=== PATIENT | male | born 1990 | race Caucasian/White ===

== ENCOUNTER 2025-02-25 08:10 | Inpatient (IN) | payer OTHER ==
[~2025-02-25] VITALS: Ht 170.2 cm; Wt 75.0 kg
[2025-02-25 09:20] LABS: PLATELET COUNT (AUTO) 269 K/uL (150-450); RED BLOOD CELL COUNT(AUTO) 3.90 MIL/uL (4.50-5.90); RED CELL DISTRIBUTION WIDTH 13.3 % (11.5-14.5); WHITE BLOOD COUNT (AUTO) 12.5 K/uL (4.5-11.0)
[2025-02-25 09:28] LABS: CALCIUM, TOTAL 8.1 mg/dL (8.8-10.5); CREATININE 0.57 mg/dL (0.60-1.30); GLOMERULAR FILTR. RATE CALC > 60 mL/min (>60); GLUCOSE,RANDOM 102 mg/dL (70-110); SODIUM SERUM 138 mmol/L (136-145); UREA NITROGEN, BLOOD 14 mg/dL (7-18)
[2025-02-25 11:58] LABS: APPEARANCE,URINE CLEAR (CLEAR); GLUCOSE, URINE (UA) NEGATIVE (NEGATIVE); LEUKOCYTE ESTERASE ,URINE NEGATIVE (NEGATIVE); NITRATE,URINE NEGATIVE (NEGATIVE); OCCULT BLOOD,URINE NEGATIVE (NEGATIVE); PH,URINE DRUG SCREEN 6.5 (5.0-8.0); SPECIFIC GRAVITIY, URINE 1.022 (1.003-1.030)
[2025-02-25] MEDS: SODIUM CHLORIDE 0.9% 1,000 ML IV ONE (12:02)
[2025-02-25] MEDS: KETOROLAC TROMETHAMINE 30 MG/ML VIAL IVP ONE (12:02)
[2025-02-25 12:04] LABS: ALCOHOL, URINE DRUG SCREEN NEGATIVE (NEGATIVE); AMPHET/METH SCREEN,URINE NEGATIVE (NEGATIVE); BARBITURATE SCREEN, URINE NEGATIVE (NEGATIVE); CANNABINOID SCREEN,URINE NEGATIVE (NEGATIVE); COCAINE SCREEN,URINE NEGATIVE (NEGATIVE); METHADONE SCREEN, URINE NEGATIVE (NEGATIVE)
[2025-02-25] MEDS ORDERED: 0.9% SODIUM CHLORIDE 10 ML SYRINGE IVP PRN (13:00)
[2025-02-25] MEDS ORDERED: IOHEXOL 350 MG/ML 100 ML VIAL ONE (13:35)
[2025-02-25] MEDS ORDERED: SODIUM CHLORIDE 0.9% 100 ML ONE (13:35)
[2025-02-25] MEDS ORDERED: 0.9% SODIUM CHLORIDE 10 ML SYRINGE IVP ONE (13:35)
[2025-02-25 13:37] LABS: CALCIUM, TOTAL 7.9 mg/dL (8.8-10.5); CREATININE 0.50 mg/dL (0.60-1.30); GLOMERULAR FILTR. RATE CALC > 60 mL/min (>60); GLUCOSE,RANDOM 92 mg/dL (70-110); SODIUM SERUM 138 mmol/L (136-145); UREA NITROGEN, BLOOD 13 mg/dL (7-18)
[2025-02-25] MEDS: MORPHINE SULFATE 2 MG/ML SYRINGE IVP ONE (13:41)
[2025-02-25] MEDS: CefTRIAXone SODIUM 2 GM in DEXTROSE 5%-WATER 50 ML IV SCH (13:43)
[2025-02-25] MEDS: SODIUM CHLORIDE 0.9% 1,250 ML IV ONE (13:43)
[2025-02-25 13:57] LABS: ASPARTATE AMINOTRANSFERASE 24 U/L (15-37); LACTATE DEHYDROGENASE 199 U/L (85-227); TOTAL PROTEIN, SERUM 6.1 g/dL (6.4-8.2)
[2025-02-25 14:07] LABS: LACTIC ACID 0.4 mmol/L (0.4-2.0)
[2025-02-25 14:17] LABS: HCG,QUANTITATIVE < 1 mIU/mL (0-6)
[2025-02-25] MEDS: ACETAMINOPHEN 325 MG TABLET PO PRN (14:50)
[2025-02-25 14:56] VITALS: BP 143/95; PULSE 70; RESP 20; TEMP 98.2; O2SAT 100
[2025-02-25] MEDS: HEPARIN SODIUM,PORCINE 5,000 UNITS/ML VIAL SQ SCH (16:06)
[2025-02-25 20:04] VITALS: BP 121/69; PULSE 79; RESP 18; TEMP 98.4; O2SAT 100
[2025-02-25] MEDS: PIPERACILLIN/TAZO 3.375 GM/D5W 50 ML IV SCH (20:07)
[2025-02-26 04:59] VITALS: BP 132/76; PULSE 70; RESP 18; TEMP 99.7; O2SAT 99
[2025-02-26 06:36] VITALS: TEMP 98.4
[2025-02-26 09:04] LABS: PLATELET COUNT (AUTO) 278 K/uL (150-450); RED BLOOD CELL COUNT(AUTO) 3.88 MIL/uL (4.50-5.90); RED CELL DISTRIBUTION WIDTH 13.2 % (11.5-14.5); WHITE BLOOD COUNT (AUTO) 12.3 K/uL (4.5-11.0)
[2025-02-26 09:06] VITALS: BP 135/76; PULSE 63; RESP 18; TEMP 98.6; O2SAT 100
[2025-02-26 09:14] LABS: CREATININE 0.93 mg/dL (0.60-1.30); GLUCOSE,RANDOM 91 mg/dL (70-110); SODIUM SERUM 139 mmol/L (136-145); UREA NITROGEN, BLOOD 11 mg/dL (7-18)
[2025-02-26 09:15] LABS: CALCIUM, TOTAL 8.1 mg/dL (8.8-10.5); GLOMERULAR FILTR. RATE CALC > 60 mL/min (>60)
[2025-02-26] MEDS ORDERED: GADOTERATE MEGLUMINE 10 MMOL/20 ML VIAL IVP ONE (10:05)
[2025-02-26] MEDS: KETOROLAC TROMETHAMINE 15 MG/ML VIAL IVP PRN (15:30)
[2025-02-26 21:25] VITALS: BP 131/77; PULSE 61; RESP 18; TEMP 99; O2SAT 99
[2025-02-26] MEDS ORDERED: SODIUM PHOSPHATE,MONO-DIBASIC 133 ML ENEMA PR ONE (22:45)
[2025-02-26] MEDS: POLYETHYLENE GLYCOL 3350 17 GM PACKET PO ONE (23:30)
[2025-02-27 03:35] VITALS: BP 117/65; PULSE 87; RESP 18; TEMP 98.4; O2SAT 98
[2025-02-27 08:00] VITALS: BP 128/58; PULSE 60; RESP 19; TEMP 98; O2SAT 99
[2025-02-27 08:33] LABS: PLATELET COUNT (AUTO) 284 K/uL (150-450); RED BLOOD CELL COUNT(AUTO) 3.94 MIL/uL (4.50-5.90); RED CELL DISTRIBUTION WIDTH 13.0 % (11.5-14.5); WHITE BLOOD COUNT (AUTO) 11.6 K/uL (4.5-11.0)
[2025-02-27 08:46] LABS: CALCIUM, TOTAL 8.1 mg/dL (8.8-10.5); CREATININE 0.57 mg/dL (0.60-1.30); GLOMERULAR FILTR. RATE CALC > 60 mL/min (>60); GLUCOSE,RANDOM 95 mg/dL (70-110); SODIUM SERUM 138 mmol/L (136-145); UREA NITROGEN, BLOOD 11 mg/dL (7-18)
[2025-02-27 08:50] LABS: ASPARTATE AMINOTRANSFERASE 22 U/L (15-37); LACTATE DEHYDROGENASE 172 U/L (85-227); TOTAL PROTEIN, SERUM 6.2 g/dL (6.4-8.2)
[2025-02-27] MEDS ORDERED: MIDAZOLAM HCL 2 MG/2 ML VIAL ONE (12:00)
[2025-02-27] MEDS ORDERED: FentaNYL CITRATE PF 100 MCG/2 ML VIAL ONE (12:00)
[2025-02-27] MEDS ORDERED: SODIUM CHLORIDE 0.9% 500 ML IV ONE (12:45)
[2025-02-27] MEDS: GABAPENTIN 100 MG CAPSULE PO SCH (15:00)
[2025-02-27] MEDS: ACETAMINOPHEN 325 MG TABLET PO SCH (16:00)
[2025-02-27] MEDS ORDERED: RINGERS SOLUTION,LACTATED 1,000 ML IV ONE (17:25)
[2025-02-27] MEDS: VANCOMYCIN HCL 1 GM VIAL ONE (18:00)
[2025-02-27] MEDS ORDERED: ACETAMINOPHEN 1000 MG/ISO-OSM 100 ML IV ONE (18:56)
[2025-02-27] MEDS: ACETAMINOPHEN 1000 MG/ISO-OSM 100 ML IV ONE (19:12)
[2025-02-27] MEDS ORDERED: OxyCODONE HCL/ACETAMINOPHEN 5-325 MG TABLET PO PRN (19:15)
[2025-02-27] MEDS ORDERED: HYDROCODONE/ACETAMINOPHEN 5-325 MG TABLET PO PRN (19:15)
[2025-02-27 20:00] VITALS: BP 115/70; PULSE 67; RESP 18; TEMP 98.8; O2SAT 98
[2025-02-27] MEDS: POTASSIUM CHL 20 MEQ/0.9% NS 1,000 ML IV SCH (20:14)
[2025-02-27] MEDS ORDERED: FentaNYL CITRATE PF 100 MCG/2 ML VIAL IV ONE (20:59)
[2025-02-27] MEDS ORDERED: MIDAZOLAM HCL 2 MG/2 ML VIAL IVP ONE (20:59)
[2025-02-27] MEDS: MORPHINE SULFATE 4 MG/ML SYRINGE IVP PRN (22:29)
[2025-02-27 22:38] VITALS: BP 75/70; PULSE 56; RESP 18; TEMP 97.5
[2025-02-27 22:40] VITALS: BP 86/46; PULSE 54; RESP 18; TEMP 97.5; O2SAT 95
[2025-02-27] MEDS ORDERED: SODIUM CHLORIDE 0.9% 1,000 ML ONE (22:46)
[2025-02-27] MEDS: SODIUM CHLORIDE 0.9% 1,000 ML IV ONE (23:00)
[2025-02-28] VITALS: BP 123/70; PULSE 52; PULSE 53; RESP 15; TEMP 98.2; O2SAT 94
[2025-02-28] MEDS: TRANEXAMIC ACID 1,000 MG/10 ML VIAL IVP ONE (00:39)
[2025-02-28] MEDS: TRANEXAMIC ACID 1,000 MG/10 ML VIAL TP ONE (00:39)
[2025-02-28] MEDS: ETHYL ALCOHOL 62% ANTISEPTIC NASAL SANITIZER 0.6 ML AMPUL NASAL SCH (00:41)
[2025-02-28 04:00] VITALS: BP 99/55; PULSE 55; RESP 17; TEMP 98.3; O2SAT 97
[2025-02-28 06:16] LABS: PLATELET COUNT (AUTO) 290 K/uL (150-450); RED BLOOD CELL COUNT(AUTO) 3.69 MIL/uL (4.50-5.90); RED CELL DISTRIBUTION WIDTH 12.7 % (11.5-14.5); WHITE BLOOD COUNT (AUTO) 16.4 K/uL (4.5-11.0)
[2025-02-28 06:24] LABS: CALCIUM, TOTAL 7.5 mg/dL (8.8-10.5); CREATININE 0.72 mg/dL (0.60-1.30); GLOMERULAR FILTR. RATE CALC > 60 mL/min (>60); GLUCOSE,RANDOM 176 mg/dL (70-110); SODIUM SERUM 137 mmol/L (136-145); UREA NITROGEN, BLOOD 16 mg/dL (7-18)
[2025-02-28 08:00] VITALS: BP 124/63; PULSE 47; RESP 18; TEMP 98.1; O2SAT 98
[2025-02-28 08:30] VITALS: PULSE 69
[2025-02-28] MEDS ORDERED: ONDANSETRON HCL 4 MG/2 ML VIAL IVP ONE (12:07)
[2025-02-28] MEDS ORDERED: ROCURONIUM BROMIDE 10 MG/ML 5 ML VIAL IV ONE (12:07)
[2025-02-28] MEDS ORDERED: DEXAMETHASONE SOD PHOS 4 MG/ML VIAL IVP ONE (12:07)
[2025-02-28] MEDS ORDERED: SUGAMMADEX SODIUM 200 MG/2 ML VIAL IVP ONE (12:07)
[2025-02-28] MEDS ORDERED: LIDOCAINE/PF 2% 5 ML VIAL IM ONE (12:07)
[2025-02-28] MEDS ORDERED: PROPOFOL 1% 20 ML VIAL IVP ONE (12:07)
[2025-02-28] MEDS ORDERED: KETOROLAC TROMETHAMINE 60 MG/2 ML VIAL IM ONE (12:07)
[2025-02-28] MEDS: SODIUM CHLORIDE 0.9% 1,000 ML IV ONE (14:27)
[2025-02-28] MEDS: HYDROCODONE/ACETAMINOPHEN 5-325 MG TABLET PO PRN (14:28)
[2025-02-28] MEDS: VANCOMYCIN 1.25 GM/WATER(PEG) 250 ML IV ONE (17:46)
[2025-02-28 18:00] VITALS: BP 118/70; PULSE 64; RESP 18; TEMP 98.2; O2SAT 98
[2025-02-28] MEDS ORDERED: BENZOCAINE/MENTHOL [CEPACOL] LOZENGE PO PRN (18:45)
[2025-02-28 20:00] VITALS: BP 119/69; PULSE 61; RESP 18; TEMP 97.7; O2SAT 100
[2025-02-28] MEDS: VANCOMYCIN 1GM/WATER(PEG/NADA) 200 ML IV SCH (23:38)
[2025-03-01 04:00] VITALS: BP 119/68; PULSE 60; RESP 16; TEMP 98.6; O2SAT 98
[2025-03-01] MEDS ORDERED: SODIUM CHLORIDE 0.9% 500 ML IRRIG SOLUTION BOTTLE IRRIG ONE ×2 (04:39→14:20)
[2025-03-01 06:45] LABS: PLATELET COUNT (AUTO) 287 K/uL (150-450); RED BLOOD CELL COUNT(AUTO) 3.39 MIL/uL (4.50-5.90); RED CELL DISTRIBUTION WIDTH 13.1 % (11.5-14.5); WHITE BLOOD COUNT (AUTO) 13.5 K/uL (4.5-11.0)
[2025-03-01 06:49] LABS: CALCIUM, TOTAL 7.6 mg/dL (8.8-10.5); CREATININE 0.74 mg/dL (0.60-1.30); GLOMERULAR FILTR. RATE CALC > 60 mL/min (>60); GLUCOSE,RANDOM 96 mg/dL (70-110); SODIUM SERUM 139 mmol/L (136-145); UREA NITROGEN, BLOOD 14 mg/dL (7-18)
[2025-03-01 08:37] VITALS: BP 117/70; PULSE 62; RESP 18; TEMP 98.3; O2SAT 95
[2025-03-01 19:20] LABS: INFLUENZA A-RTPCR,COMBO NEGATIVE (NEGATIVE); INFLUENZA B-RTPCR,COMBO NEGATIVE (NEGATIVE); RESPIRATORY SYNCYTIAL VRS-PCR NEGATIVE (NEGATIVE); SARS COVID19 RTPCR, COMBO NEGATIVE (NEGATIVE)
[2025-03-01 19:38] VITALS: BP 136/72; PULSE 64; RESP 18; TEMP 98.4; O2SAT 96
[2025-03-01 20:07] LABS: BETA-2 GLYCOPROTEIN1 IGA <9 (0-25); BETA-2 GLYCOPROTEIN1 IGG <9 (0-20); BETA-2 GLYCOPROTEIN1 IGM <9 (0-32)
[2025-03-02 04:24] VITALS: BP 134/79; PULSE 58; RESP 19; TEMP 98.2; O2SAT 100
[2025-03-02 07:26] LABS: PLATELET COUNT (AUTO) 303 K/uL (150-450); RED BLOOD CELL COUNT(AUTO) 3.64 MIL/uL (4.50-5.90); RED CELL DISTRIBUTION WIDTH 13.5 % (11.5-14.5); WHITE BLOOD COUNT (AUTO) 8.5 K/uL (4.5-11.0)
[2025-03-02 07:39] LABS: CALCIUM, TOTAL 8.0 mg/dL (8.8-10.5); CREATININE 0.73 mg/dL (0.60-1.30); GLOMERULAR FILTR. RATE CALC > 60 mL/min (>60); GLUCOSE,RANDOM 95 mg/dL (70-110); SODIUM SERUM 140 mmol/L (136-145); UREA NITROGEN, BLOOD 13 mg/dL (7-18)
[2025-03-02 08:00] VITALS: BP 143/89; PULSE 54; RESP 19; TEMP 97.9; O2SAT 99
[2025-03-02] MEDS: ONDANSETRON HCL 4 MG/2 ML VIAL IVP PRN (14:56)
[2025-03-02] MEDS: OxyCODONE HCL/ACETAMINOPHEN 5-325 MG TABLET PO PRN (15:07)
[2025-03-02 20:05] VITALS: BP 129/70; PULSE 57; RESP 18; TEMP 98.1; O2SAT 99
[2025-03-03 05:49] VITALS: BP 121/64; PULSE 56; RESP 19; TEMP 98.2; O2SAT 99
[2025-03-03 06:37] LABS: PLATELET COUNT (AUTO) 320 K/uL (150-450); RED BLOOD CELL COUNT(AUTO) 3.59 MIL/uL (4.50-5.90); RED CELL DISTRIBUTION WIDTH 13.6 % (11.5-14.5); WHITE BLOOD COUNT (AUTO) 8.0 K/uL (4.5-11.0)
[2025-03-03 06:47] LABS: CALCIUM, TOTAL 8.1 mg/dL (8.8-10.5); CREATININE 1.05 mg/dL (0.60-1.30); GLOMERULAR FILTR. RATE CALC > 60 mL/min (>60); GLUCOSE,RANDOM 128 mg/dL (70-110); SODIUM SERUM 138 mmol/L (136-145); UREA NITROGEN, BLOOD 15 mg/dL (7-18)
[2025-03-03 08:47] VITALS: BP 108/67; PULSE 53; RESP 18; TEMP 98.1; O2SAT 98
[2025-03-03] MEDS ORDERED: GABA-1216 PO (11:53)
[2025-03-03] MEDS ORDERED: CEPH-558 PO (11:54)
[2025-03-03] MEDS ORDERED: DOXY-354 PO (11:56)
[2025-03-03] MEDS ORDERED: TRAM50TA5 PO (11:57)
[2025-03-03 14:06] LABS: BETA-HYDROXBUTYRIC ACID 2.1 mg/dL
[2025-03-03 20:28] VITALS: BP 141/89; PULSE 77; RESP 20; TEMP 97.9; O2SAT 98
[2025-03-05 05:08] LABS: BETA-CAROTENE SERUM TOTAL 11.0 ug/dL (3-91)
== END 2025-03-03 21:00 | DRG 854 ==
LOC: EMS 08:10 → EDH 12:52 → 6N 14:10 → ICU 02-28 → 6N 02-28 11:44
PROVIDERS: ADMIT Internal Medicine; ATTEND Internal Medicine
PROC: 0V950ZZ Drainage of Scrotum, Open Approach (ICD-10-PCS; principal; 2025-02-27 17:30)
DX: A41.9 Sepsis, unspecified organism (principal); N45.4 Abscess of epididymis or testis; D64.9 Anemia, unspecified; N50.812 Left testicular pain; K56.41 Fecal impaction; F17.200 Nicotine dependence, unspecified, uncomplicated; Z20.822 Contact with and (suspected) exposure to COVID-19; F15.90 Other stimulant use, unspecified, uncomplicated
CPT/HCPCS: 71260; 72193; 72197; 74160; 76870; 80048; 80053; 80202; 80307; 81003; 82010; 82105; 82380; 83605; 83615; 83735; 84145; 84702; 85014; 85018; 85025; 85730; 86146; 86850; 86900; 86901; 87040; 87070; 87081; 87205; 87430; 87491; 87591; 87637; 88305; 96361; 96374; 99285; J0131; J0696; J1100; J1171; J1644; J1885; J2250; J2270; J2405; J2543; J2704; J3010; J3373; J3480; J3490; J7030; J7040; J7050; J7060; J7120; 36415-L1; 36415-TC; Z7610

== ENCOUNTER 2025-03-03 23:39 | Inpatient (IN) | payer OTHER ==
[~2025-03-03] VITALS: Ht 172.7 cm; Wt 91.0 kg
[~2025-03-03 23:39] MED LIST: CEPH-558 PO; DOXY-354 PO; GABA-1216 PO; TRAM50TA5 PO
[2025-03-04 01:31] LABS: PLATELET COUNT (AUTO) 348 K/uL (150-450); RED BLOOD CELL COUNT(AUTO) 3.43 MIL/uL (4.50-5.90); RED CELL DISTRIBUTION WIDTH 13.3 % (11.5-14.5); WHITE BLOOD COUNT (AUTO) 10.2 K/uL (4.5-11.0)
[2025-03-04 01:35] LABS: CALCIUM, TOTAL 8.3 mg/dL (8.8-10.5); CREATININE 1.06 mg/dL (0.60-1.30); GLOMERULAR FILTR. RATE CALC > 60 mL/min (>60); GLUCOSE,RANDOM 137 mg/dL (70-110); SODIUM SERUM 137 mmol/L (136-145); UREA NITROGEN, BLOOD 20 mg/dL (7-18)
[2025-03-04 01:41] LABS: ASPARTATE AMINOTRANSFERASE 33.0 U/L (15-37); TOTAL PROTEIN, SERUM 6.0 g/dL (6.4-8.2)
[2025-03-04] MEDS: FentaNYL CITRATE PF 100 MCG/2 ML VIAL IVP ONE (03:22)
[2025-03-04] MEDS: DOXYCYCLINE HYCLATE 100 MG in DEXTROSE 5%-WATER 100 ML IV ONE (03:30)
[2025-03-04 04:37] LABS: APPEARANCE,URINE CLEAR (CLEAR); GLUCOSE, URINE (UA) NEGATIVE (NEGATIVE); LEUKOCYTE ESTERASE ,URINE NEGATIVE (NEGATIVE); NITRATE,URINE NEGATIVE (NEGATIVE); OCCULT BLOOD,URINE NEGATIVE (NEGATIVE); SPECIFIC GRAVITIY, URINE 1.016 (1.003-1.030)
[2025-03-04 08:29] VITALS: BP 136/77; PULSE 57; RESP 18; TEMP 97.5; O2SAT 100
[2025-03-04] MEDS ORDERED: BISACODYL 10 MG RECTAL RECTAL SUPPOSITORY PR PRN (08:45)
[2025-03-04] MEDS ORDERED: ZOLPIDEM TARTRATE 5 MG TABLET PO PRN (08:45)
[2025-03-04] MEDS ORDERED: ONDANSETRON HCL 4 MG/2 ML VIAL IVP PRN (08:45)
[2025-03-04] MEDS: CEPHALEXIN MONOHYDRATE 500 MG CAPSULE PO SCH (10:38)
[2025-03-04] MEDS: DOXYCYCLINE HYCLATE 100 MG TABLET PO SCH (10:38)
[2025-03-04] MEDS: PANTOPRAZOLE SODIUM 40 MG DR TABLET PO SCH (10:38)
[2025-03-04] MEDS: DOCUSATE SODIUM 100 MG CAPSULE PO SCH (10:39)
[2025-03-04] MEDS: HEPARIN SODIUM,PORCINE 5,000 UNITS/ML VIAL SQ SCH (15:51)
[2025-03-04 19:55] VITALS: BP 130/71; PULSE 68; RESP 18; TEMP 98.4; O2SAT 98
[2025-03-04] MEDS: ACETAMINOPHEN 325 MG TABLET PO PRN (20:17)
[2025-03-05 04:22] VITALS: BP 134/81; PULSE 57; RESP 18; TEMP 98.1; O2SAT 99
[2025-03-05 06:54] LABS: PLATELET COUNT (AUTO) 337 K/uL (150-450); RED BLOOD CELL COUNT(AUTO) 3.88 MIL/uL (4.50-5.90); RED CELL DISTRIBUTION WIDTH 13.8 % (11.5-14.5); WHITE BLOOD COUNT (AUTO) 10.7 K/uL (4.5-11.0)
[2025-03-05 07:11] LABS: CALCIUM, TOTAL 8.7 mg/dL (8.8-10.5); CREATININE 0.61 mg/dL (0.60-1.30); GLOMERULAR FILTR. RATE CALC > 60 mL/min (>60); GLUCOSE,RANDOM 89 mg/dL (70-110); SODIUM SERUM 139 mmol/L (136-145); UREA NITROGEN, BLOOD 14 mg/dL (7-18)
[2025-03-05 08:55] VITALS: BP 130/75; PULSE 84; RESP 18; TEMP 97.7; O2SAT 99
[2025-03-05] MEDS: MORPHINE SULFATE 4 MG/ML SYRINGE IVP PRN (09:44)
[2025-03-05] MEDS: MAGNESIUM HYDROXIDE SUSPENSION 30 ML UDCUP PO PRN (17:16)
[2025-03-05 20:00] VITALS: BP 117/59; PULSE 74; RESP 18; TEMP 98.4; O2SAT 99
[2025-03-06 03:54] VITALS: BP 111/65; PULSE 65; RESP 18; TEMP 98.1; O2SAT 99
[2025-03-06 06:17] LABS: PLATELET COUNT (AUTO) 364 K/uL (150-450); RED BLOOD CELL COUNT(AUTO) 3.66 MIL/uL (4.50-5.90); RED CELL DISTRIBUTION WIDTH 13.6 % (11.5-14.5); WHITE BLOOD COUNT (AUTO) 9.4 K/uL (4.5-11.0)
[2025-03-06 06:32] LABS: CALCIUM, TOTAL 8.3 mg/dL (8.8-10.5); CREATININE 0.73 mg/dL (0.60-1.30); GLOMERULAR FILTR. RATE CALC > 60 mL/min (>60); GLUCOSE,RANDOM 112 mg/dL (70-110); SODIUM SERUM 140 mmol/L (136-145); UREA NITROGEN, BLOOD 16 mg/dL (7-18)
[2025-03-06 08:36] VITALS: BP 121/75; PULSE 51; RESP 18; TEMP 98.2; O2SAT 100
[2025-03-06] MEDS: LACTULOSE 20 GM/30 ML SOLUTION UDCUP PO PRN (15:14)
[2025-03-06] MEDS: HYDROCODONE/ACETAMINOPHEN 5-325 MG TABLET PO PRN (15:14)
[2025-03-06 15:21] VITALS: BP 104/50; RESP 18; O2SAT 100
[2025-03-06 18:55] VITALS: BP 133/81; RESP 18; O2SAT 100
[2025-03-06 19:23] VITALS: BP 140/82; PULSE 63; RESP 20; TEMP 97.5; O2SAT 100
[2025-03-07 00:30] VITALS: BP 128/78; PULSE 65; RESP 18; TEMP 97.9; O2SAT 98
[2025-03-07 05:19] VITALS: BP 116/69; PULSE 56; RESP 18; TEMP 97.7; O2SAT 97
[2025-03-07 06:34] LABS: PLATELET COUNT (AUTO) 334 K/uL (150-450); RED BLOOD CELL COUNT(AUTO) 3.88 MIL/uL (4.50-5.90); RED CELL DISTRIBUTION WIDTH 13.7 % (11.5-14.5); WHITE BLOOD COUNT (AUTO) 8.0 K/uL (4.5-11.0)
[2025-03-07 06:42] LABS: CALCIUM, TOTAL 8.4 mg/dL (8.8-10.5); CREATININE 0.81 mg/dL (0.60-1.30); GLOMERULAR FILTR. RATE CALC > 60 mL/min (>60); GLUCOSE,RANDOM 87 mg/dL (70-110); SODIUM SERUM 141 mmol/L (136-145); UREA NITROGEN, BLOOD 16 mg/dL (7-18)
[2025-03-07 09:04] VITALS: BP 123/67; PULSE 51; RESP 19; TEMP 97.9; O2SAT 100
[2025-03-07] MEDS: LIDOCAINE 5% 36 GM OINTMENT TP SCH (13:30)
[2025-03-07] MEDS: MORPHINE SULFATE 4 MG/ML SYRINGE IVP ONE (14:14)
[2025-03-07] MEDS: ACETAMINOPHEN 500 MG TABLET PO SCH (15:29)
[2025-03-07] MEDS: GABAPENTIN 300 MG CAPSULE PO SCH (15:29)
[2025-03-07 19:49] VITALS: BP 121/63; PULSE 60; RESP 18; TEMP 98.2; O2SAT 98
[2025-03-07] MEDS: KETOROLAC TROMETHAMINE 10 MG TABLET PO PRN (21:20)
[2025-03-08 04:44] VITALS: BP 118/61; PULSE 60; RESP 18; TEMP 97.7; O2SAT 99
[2025-03-08 08:19] VITALS: BP 140/78; PULSE 54; RESP 18; TEMP 98.2; O2SAT 96
[2025-03-08 19:59] VITALS: BP 118/60; PULSE 60; RESP 18; TEMP 98.1; O2SAT 97
[2025-03-09] MEDS: MELATONIN 3 MG TABLET PO PRN (01:56)
[2025-03-09 04:48] VITALS: BP 105/62; PULSE 64; RESP 18; TEMP 98.1; O2SAT 98
[2025-03-09 08:00] VITALS: BP 116/60; PULSE 53; RESP 19; TEMP 98; O2SAT 99
[2025-03-09 20:31] VITALS: BP 104/54; PULSE 77; RESP 18; TEMP 98.1; O2SAT 96
[2025-03-10 03:41] VITALS: BP 104/60; PULSE 60; RESP 18; TEMP 97.7; O2SAT 98
[2025-03-10 08:11] VITALS: BP 124/68; PULSE 52; RESP 18; TEMP 98.1; O2SAT 100
[2025-03-11 04:12] VITALS: BP 114/57; PULSE 81; RESP 18; TEMP 97.7; O2SAT 100
[2025-03-11 08:18] VITALS: BP 121/71; PULSE 57; RESP 18; TEMP 97.9; O2SAT 99
[2025-03-11 20:33] VITALS: BP 115/67; PULSE 70; RESP 18; TEMP 97.7; O2SAT 99
[2025-03-12 04:20] VITALS: BP 122/70; PULSE 87; RESP 18; TEMP 97.9; O2SAT 99
[2025-03-12 07:10] VITALS: BP 113/61; PULSE 60; RESP 18; TEMP 97.9; O2SAT 98
[2025-03-12] MEDS ORDERED: ACET-3385 PO (13:40)
[2025-03-12 19:34] VITALS: BP 114/64; PULSE 72; RESP 18; TEMP 98.1; O2SAT 96
== END 2025-03-12 21:33 | DRG 872 ==
LOC: EMS 23:40 → EDH 03-04 01:20 → 6N 03-04 08:00
PROVIDERS: ADMIT Internal Medicine; ATTEND Internal Medicine
DX: A41.9 Sepsis, unspecified organism (principal); N45.4 Abscess of epididymis or testis; D64.9 Anemia, unspecified; F17.200 Nicotine dependence, unspecified, uncomplicated
CPT/HCPCS: 76870; 80048; 80076; 81003; 85025; 97110; 97116; 97161; 99285; J1644; J2270; J3010; J3490; J7060